=== PATIENT | female | born 1970 | race Caucasian/White ===

== ENCOUNTER 2016-08-29 16:50 | Emergency (ER) | payer SELFPAY ==
[~2016-08-29] VITALS: Ht 162.6 cm; Wt 75.0 kg
[~2016-08-29 16:50] MED LIST: TRAM50 PO
[2016-08-29 16:56] VITALS: BP 145/81; PULSE 88; RESP 24; TEMP 98; O2SAT 97
[2016-08-29] MEDS ORDERED: PERM5CRE11 TOPICAL (17:16)
--- NOTE | 2016-08-29 17:17 | PD ---
HPI Chief Complaint: Skin Problem Time Seen by Provider: 17:15 Travel History International Travel<30 days: No Contact w/Intl Traveler<30days: No Traveled to known affect area: No History of Present Illness HPI 45-year-old female presents to emergency Department with complaint of a generalized itchy rash that is worsening 2 months. Reports nausea without vomiting. Says she had a fever last night but cannot reports MAXIMUM TEMPERATURE. Her also has similar rash, but just not as bad. She's been taking Benadryl for symptom management. Denies new lotions, soaps, detergents, medications, foods, environmental exposures. Denies airway edema, difficulty breathing, shortness of breath. No known allergies. Has no other medical complaints. No other modifying factors or associated signs and symptoms. PFSH Past Medical History Respiratory: Yes (copd) ?: Unknown LMP: 4 months ago Social History Alcohol Use: Yes (2-3 BEERS DAILY) Tobacco Use: No (E-CIG/QUIT 12/20/12) Substance Use: No Allergies-Medications (Allergen,Severity, Reaction): Coded Allergies: No Known Allergies (Verified , 08/29/16) Reported Meds & Prescriptions Reported Meds & Active Scripts Active Bactrim DS (Sulfamethoxazole-Trimethoprim) 800-160 Mg Tab 1 Tab PO BID 10 Days Keflex (Cephalexin) 500 Mg Cap 500 Mg PO Q6H 10 Days Elimite Topical (Permethrin) 5% Cream 1 Applic TOPICAL ONCE Ultram (Tramadol HCl) 50 Mg Tab 50 Mg PO Q6H PRN FOR PAIN Review of Systems Except as stated in HPI: all other systems reviewed are Neg Physical Exam Narrative GENERAL: Well-nourished, well-developed female patient, in no acute distress; afebrile, nontoxic-appearing SKIN: Warm and dry. Generalized erythremic pimple-like rash to chest, breasts, abdomen, back, bilateral upper extremity, bilateral lower extremities; some areas appear excoriated. Bilateral lower back areas appear extremely excoriated with possible signs of cellulitis; erythema and warmth to touch; without drainage. HEAD: Atraumatic. Normocephalic. EYES: Pupils equal and round. No scleral icterus. No injection or drainage. ENT: Mucosa pink and moist. Airway patent. NECK: Trachea midline. CARDIOVASCULAR: Regular rate. RESPIRATORY: No accessory muscle use. GASTROINTESTINAL: Flat. MUSCULOSKELETAL: No obvious deformities. No clubbing. No cyanosis. No edema. NEUROLOGICAL: Awake and alert. Oriented 3. No obvious cranial nerve deficits. Motor grossly within normal limits. Normal speech. PSYCHIATRIC: Appropriate mood and affect; insight and judgment normal. Data Data Last Documented VS Vital Signs Date Time Temp Pulse Resp B/P Pulse Ox O2 Delivery O2 Flow Rate FiO2 08/29/16 16:56 98.0 88 24 145/81 97 Room Air Orders Diphenhydramine (Benadryl) (08/29/16 17:30) [facility] Medical Decision Making Medical Screen Exam Complete: Yes Emergency Medical Condition: Yes Medical Record Reviewed: Yes Differential Diagnosis Scabies, contact dermatitis, nonspecific rash Narrative Course 45-year-old female physical exam consistent with possible scabies rash and cellulitis to the lower back secondary to excessive scratching. Patient is afebrile and nontoxic-appearing. She reports nausea without vomiting. Reports subjective fever last night. Elimite cream, Bactrim, Keflex prescribed for home. Instructed patient to follow up with dermatology. Instructed patient to follow up with primary care provider. Patient verbalizes understanding and agreement with treatment plan. Patient is medically cleared and stable for discharge. Discussed reasons to return to the emergency department. Patient agrees with treatment plan. The patients vital signs are stable and the patient is stable for outpatient follow-up and treatment. Patient discharged home, stable and in no acute distress. Diagnosis Primary Impression: Rash and nonspecific skin eruption Additional Impression: Cellulitis of lower back Referrals: Media Director Primary Care Physician Patient Instructions: Acute Rash (ED), General Instructions, Scabies (ED) Departure Forms: Tests/Procedures, Work Release Enter return to work date: Sep 02, 2016 Additional Instructions: Elimite cream as directed; repeat in one week as needed Soaking in cool water or apply cool, wet washcloths to irritated areas to minimize itching Apply anti-itch creams, such as calamine lotion, to relieve pain and itching as needed [id number] antihistamines as needed and as directed to relieve allergic symptoms caused by scabies Wash all pillows, linens, blankets, etc. in hot water and dry in hot dryer Bag and all unwashable linens, [place] stuffed animals, etc. 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
[2016-08-29] MEDS ORDERED: BACT800T5 PO (17:18)
[2016-08-29] MEDS ORDERED: CEPH-460 PO (17:18)
[2016-08-29] MEDS ORDERED: diphenhydrAMINE HCL 50 MG CAP PO ONE (17:30)
== END 2016-08-29 17:28 | disposition home or self-care (01) ==
LOC: NEPK 16:50
DX: R21 Rash and other nonspecific skin eruption (principal); L03.312 Cellulitis of back [any part except buttock and flank]; J44.9 Chronic obstructive pulmonary disease, unspecified; Z79.899 Other long term (current) drug therapy
CPT/HCPCS: 99284; Q0163